=== PATIENT | male | born 1965 | race Caucasian/White ===

== ENCOUNTER 2024-04-16 20:00 | Emergency (ER) | payer OTHER, SELFPAY ==
[2024-04-16 20:11] VITALS: BP 168/95
--- NOTE | 2024-04-16 23:05 | ED.GENMED ---
History of Present Illness
General
Chief Complaint: Skin Problem
Source: patient
Time Seen by Provider: 04/16/24 22:50
Travel History
Have you had any contact with someone who has COVID-19?: No
Do you have any symptoms of coronavirus? Fever > 100 degrees, chills, cough, shortness of breath, sore throat, loss of taste or smell, muscle aches, or headache?: No
History of Present Illness
History of Present Illness:
58-year-old male presenting the emergency department for evaluation of left ring finger pain, swelling and erythema over the last couple of weeks. Patient states that the last few days the pain swelling of gotten worse, believes there to be an
infection, so presented to the ER for further. Denies any history of similar. No noted trauma. Patient states he is not sure overall as to how he got this but does note doing a large amount of yard work over the last couple of weeks.
Past History
Past History
ED Past Medical History: Asthma
ED Past Surgical History: Appendectomy and Other (Nasal surgery)
Social History
Tobacco: Non-smoker
Alcohol: None
Drug: None
Personal:
Living: with family
Employment: Employed
Family History
Family History: Negative Early CAD or Sudden
Review of Systems
Review of Systems
All Other Systems: ROS reviewed and negative except as documented in HPI and ROS
Phy Exam
Physical Exam
Physical Exam:
GENERAL: Alert , in no apparent distress
EYE: conjunctiva clear
Head: Normocephalic atraumatic
NECK: Supple,
ENT: mmm.
LUNGS: no acute respiratory distress
NEUROLOGICAL: Alert and oriented
SKIN: Warm and dry, left ring finger has overlying erythema, edema, fluctuance along the nail folds. This does not extend towards the palmar fat pad or the flexor tendon.
MUSCULOSKELETAL: well perfused. Full range of motion of all digits on the left hand without difficulty
PSYCH: Normal and appropriate interaction.
Scores
Heart Failure Risk
Heart Failure Risk Score: Not Applicable
Heart Score for Chest Pain Patients
STEMI patient?: Not applicable
Withdrawal Assessment of Alcohol
Withdrawal Assessment Completed?: Not applicable
Course
Orders/Labs/Results
Orders:
Orders
04/16/24 23:07
Doxycycline [Vibramycin] 100 mg PO NOW STA
Vital Signs
Initial and Last Documented VS:
Initial Vital Signs
Temp Pulse Resp BP Pulse Ox
98.7 F 64 18 168/95 98
04/16/24 20:11 04/16/24 20:11 04/16/24 20:11 04/16/24 20:11 04/16/24 20:11
Last Documented Vital Signs
Temp Pulse Resp BP Pulse Ox
98.7 F 64 18 168/95 98
04/16/24 20:11 04/16/24 20:11 04/16/24 20:11 04/16/24 20:11 04/16/24 20:11
Procedures
Incision/Drainage/Joint Aspiration
Right Fourth Finger:
Anethesia: 1% Lidocaine and other (Digital block)
Preparation: cleaned with alcohol wipe
Type of procedure: incise
Nature of site: abscess
Description of abscess: less than 3cm
Loculations broken up: No
How much fluid was obtained?: small amount
Fluid description: purulent and blood tinged
Treatment: left open for drainage
MDM/Problems Addressed
Differential Diagnosis Includes:
Paronychia, felon, flexor tenosynovitis, gouty tophi
MDM/Problems Addressed:
58-year-old male presenting to the emergency department for evaluation of left ring finger pain and erythema. Exam seems to be most consistent with a paronychia with abscess formation. Area was drained as above. Advised patient continue with warm
soaks and gentle massage to the area. Prescription for doxycycline provided to cover for MRSA. Stable for discharge and aware of return precautions.
*Pulse Oximetry
Patient hypoxic: no
*Critical Care Note
Total Time (30-74mins, 75-104mins- exclusive of procedures): Not Applicable
ED Attending Note
-
Portions of this chart may have been created with voice recognition software.� Occasional wrong word or��sound alike� substitutions may have occurred due to the inherent limitations of voice recognition software.
Discharge Plan
Departure
Patient Disposition: Home (Routine Discharge)
Date of Disposition: 04/16/24
Time of Disposition: 23:05
Patient with high blood pressure during this ER visit?: Yes
Discharge Problem:
Paronychia of left ring finger
Instructions: Paronychia
Prescriptions:
New
doxycycline hyclate 100 mg tablet
100 mg PO BID 7 Days Qty: 14 0RF
No Action
cefadroxil [Duricef] 500 MG capsule
500 mg PO BID Qty: 14 0RF
Interventions
Interventions:
*Risk Screen - Suicide Last Done: 04/16/24 20:14
*General Assessment Last Done: 04/16/24 20:14
*Neglect/Abuse Screening Last Done: 04/16/24 20:14
*ED COVID-19 Vaccine History Last Done: 04/16/24 20:14
Discharge Date and Time
Print Language: JAPANESE
[2024-04-16] MEDS: VIBRAMYCIN 100 MG PO (23:10)
[2024-04-17 00:50] VITALS: BP 144/94
== END 2024-04-17 00:51 | disposition home or self-care (01) ==
LOC: EMR 20:00
PROVIDERS: EMERGENCY PHYSICIAN Student in an Organized Health Care Education/Training Program; FAMILY PHYSICIAN Family Medicine
DX: L03.012 Cellulitis of left finger (principal); R03.0 Elevated blood-pressure reading, without diagnosis of hypertension
CPT/HCPCS: 64450; 99284; 10060

== ENCOUNTER 2024-12-29 17:26 | Emergency (ER) | payer OTHER, SELFPAY ==
[2024-12-29 17:29] VITALS: BP 155/80
--- NOTE | 2024-12-29 19:41 | ED.GENMED ---
History of Present Illness
General
Chief Complaint: Skin Surface Trauma
Time Seen by Provider: 12/29/24 18:01
History of Present Illness
History of Present Illness:
59-year-old male presenting for a left hand laceration. Patient reports prior to arrival he cut his hand on a fence. Tetanus unknown. Laceration is on the palmar aspect. Denies issues with range of motion. Denies numbness or tingling. Denies
additional injuries.
Past History
Past History
ED Past Medical History: Asthma
ED Past Surgical History: Appendectomy and Other (Nasal surgery)
Social History
Tobacco: Non-smoker
Alcohol: None
Drug: None
Personal:
Living: with family
Employment: Employed
Family History
Family History: Negative Early CAD or Sudden
Phy Exam
Physical Exam
Physical Exam:
General: Well-appearing, no clinical signs of dehydration, nontoxic and in no acute distress
HEENT: protecting airway
Neck: appears supple
CV: Normal heart rate
Resp: No accessory muscle use, no increased work of breathing
Abd: no distension
Extremities: Flap laceration to the left palmar aspect of the hand, subcutaneous, not involving tendon. Range of motion and sensation intact. Bleeding controlled
Neuro: alert, no focal neurologic deficit
: deferred
Rectal: deferred
Psych: Normal affect
Skin: Intact
Course
Orders/Labs/Results
Orders:
Orders
12/29/24 19:40
Tetanus/Diphth/Acelpertussis [Adacel] 0.5 ml IM .ONCE ONE
Vital Signs
Initial and Last Documented VS:
Initial Vital Signs
Temp Pulse Resp BP Pulse Ox
98.6 F 58 18 155/80 98
12/29/24 17:29 12/29/24 17:29 12/29/24 17:29 12/29/24 17:29 12/29/24 17:29
Last Documented Vital Signs
Temp Pulse Resp BP Pulse Ox
98.6 F 58 18 155/80 98
12/29/24 17:29 12/29/24 17:29 12/29/24 17:29 12/29/24 17:29 12/29/24 17:29
Procedures
Laceration Closure
Left Hand:
Status of Wound: clean
Size of Wound in cm: 6
Description of Wound Edges: flap-well vascularized
Preparation: cleaned with saline
Anesthesia: 1% Lidocaine
Type of Closure: single layer closure
Skin Closure Material: 3-0 nylon
Number of sutures: 11
MDM/Problems Addressed
MDM/Problems Addressed:
59-year-old male presenting for a hand laceration. Vitals normal.
Laceration is a flap, well-vascularized. No foreign body and no tendon involvement. No neurovascular compromise. No infectious findings. Wound was repaired. Please see procedure note. Tetanus updated. Stable for discharge with outpatient
follow-up for suture removal. Return precautions discussed
*Critical Care Note
Total Time (30-74mins, 75-104mins- exclusive of procedures): Not Applicable
ED Attending Note
-
Portions of this chart may have been created with voice recognition software.� Occasional wrong word or��sound alike� substitutions may have occurred due to the inherent limitations of voice recognition software.
Discharge Plan
Departure
Patient Disposition: Home (Routine Discharge)
Date of Disposition: 12/29/24
Time of Disposition: 19:40
Patient with high blood pressure during this ER visit?: No
Condition: Good
Discharge Problem:
Laceration of hand
Instructions: Laceration Repair With Stitches (DC)
Prescriptions:
No Action
cefadroxil [Duricef] 500 MG capsule
500 mg PO BID Qty: 14 0RF
doxycycline hyclate 100 mg tablet
100 mg PO BID 7 Days Qty: 14 0RF
Referrals:
Vikram Rosario DO [Family Provider] -
Activity Restrictions/Additional Instructions:
You were seen in the emergency department for laceration to your hand
You had 11 sutures placed that will need to come out in 7 days. Return with any increased swelling to the hand or any development of redness or abnormal drainage
Please follow-up closely with your primary care physician.
Return to the emergency department for any worsening of your symptoms, or any development of chest pain, difficulty breathing, abdominal pain with persistent vomiting and inability to tolerate food or liquid by mouth (concern for dehydration),
weakness, headache or confusion, fever greater than 100.4, or any additional symptoms that are concerning to you.
Thank you for choosing [facility].
Discharge Date and Time
Print Language: SLOVENIAN
[2024-12-29] MEDS: ADACEL 0.5 ML IM (19:45)
== END 2024-12-29 20:13 | disposition home or self-care (01) ==
LOC: EMR 17:26
PROVIDERS: EMERGENCY PHYSICIAN Student in an Organized Health Care Education/Training Program; FAMILY PHYSICIAN Family Medicine
DX: S61.412A Laceration without foreign body of left hand, initial encounter (principal); W45.8XXA Other foreign body or object entering through skin, initial encounter; J45.909 Unspecified asthma, uncomplicated; Z23 Encounter for immunization; Z90.49 Acquired absence of other specified parts of digestive tract
CPT/HCPCS: 12002; 90471; 99282; 90715